=== PATIENT | female | born 1980 | race Caucasian/White ===

== ENCOUNTER → 2017-12-27 | Outpatient (CLI) | payer SELFPAY | LOC: COL.LAB 16:27 → COL.RAD 16:29 | DX: K59.00 Constipation, unspecified (principal); M25.552 Pain in left hip ==

== ENCOUNTER → 2018-02-17 | Outpatient (CLI) | payer SELFPAY | LOC: COL.RAD 10:25 | DX: N83.292 Other ovarian cyst, left side (principal); N88.8 Other specified noninflammatory disorders of cervix uteri; Z90.721 Acquired absence of ovaries, unilateral ==

== ENCOUNTER 2018-03-01 13:37 | Emergency (ER) | payer SELFPAY ==
[~2018-03-01] VITALS: Ht 162.6 cm; Wt 75.0 kg
[2018-03-01 13:53] VITALS: BP 151/79; TEMP 98.5
[2018-03-01 14:08] LABS: COLLECTION METHOD CLEAN CATCH
[2018-03-01 14:18] LABS: MUCOUS Present /lpf; PH 6 (5-8); URINE APPEARANCE Hazy; URINE BACTERIA None Seen /hpf; URINE BILIRUBIN Negative (NEGATIVE); URINE BLOOD Negative (NEGATIVE); URINE COLOR Yellow; URINE GLUCOSE Negative (NEGATIVE); URINE KETONE Negative (NEGATIVE); URINE LEUKOCYTE ESTERASE Negative (NEGATIVE); URINE NITRATE Negative (NEGATIVE); URINE PROTEIN(semi-quant) Negative (NEGATIVE); URINE UROBILINOGEN Negative (NEGATIVE)
[2018-03-01 14:31] LABS: BASO % 0.5 % (0.0-2.0); EOS # 0.1 (0.0-0.7); EOS % 1.1 % (0-4.0); GRAN # 3.8 (1.4-6.5); GRAN % 60.4 % (42.2-75.2); HEMATOCRIT 42.2 % (37.0-47.0); LYMPH # 1.7 (1.2-3.4); LYMPH % 27.6 % (20.0-51.0); MEAN CELL VOLUME 86 fl (80.0-100.0); MEAN CORPUSCULAR HEMOGLOBIN 28 pg (27.0-31.0); MEAN CORPUSCULAR HGB CONC 33 g/dl (33.0-37.0); MONO # 0.6 (0.1-0.6); MONO % 10.2 % (1.7-9.3); PLATELET COUNT 174 K/mm3 (130-400); RED BLOOD COUNT 4.93 M/mm3 (4.10-5.30); REDCELL DISTRIBUTION WIDTH-CV 12.5 % (11.5-14.5)
[2018-03-01 14:45] LABS: ALANINE AMINOTRANSFERASE 26 U/L (9-52); ALBUMIN 3.7 gm/dL (3.5-5.0); ALKALINE PHOSPHATASE 52 U/L (50-136); ANION GAP 10 mmol/L (7-16); AST,SGOT 16 U/L (15-37); BILIRUBIN,TOTAL 0.3 mg/dL (0.0-1.0); BLOOD UREA NITROGEN 14 mg/dL (7-17); CALCIUM 8.7 mg/dL (8.4-10.2); CARBON DIOXIDE 25 mmol/L (22-30); CHLORIDE 103 mmol/L (98-107); CREATININE, serum 0.64 mg/dL (0.52-1.25); GLUCOSE 108 mg/dL (74-106); LIPASE 76 U/L (23-300); POTASSIUM 3.3 mmol/L (3.4-5.0); SODIUM 138 mmol/L (137-145)
[2018-03-01 14:46] LABS: C-REACTIVE PROTEIN < 0.5 mg/dL (0.0-0.9)
[2018-03-01] MEDS ORDERED: DEXILANT60 MG PO (15:02)
[2018-03-01] MEDS ORDERED: NORCO 325 MG-51 TAB PO (16:48)
[2018-03-01 18:07] VITALS: PULSE 83
== END 2018-03-01 18:09 | disposition home or self-care (01) ==
LOC: COL.ER 13:37
PROVIDERS: Physician Assistant
DX: N83.202 Unspecified ovarian cyst, left side (principal); F17.210 Nicotine dependence, cigarettes, uncomplicated; Z90.721 Acquired absence of ovaries, unilateral; Z98.890 Other specified postprocedural states
CPT/HCPCS: J3010

== ENCOUNTER 2024-03-08 19:11 | Emergency (ER) | payer OTHER ==
[~2024-03-08] VITALS: Ht 162.6 cm; Wt 70.5 kg
[~2024-03-08 19:11] MED LIST: DEXILANT60 MG PO; NORCO 325 MG-51 TAB PO
[2024-03-08 19:17] VITALS: TEMP 98.5
[2024-03-08] MEDS ORDERED: LORazepam 0.5 MG TAB PO ONE (19:45)
[2024-03-08 21:00] VITALS: BP 159/88; PULSE 76
== END 2024-03-08 21:00 | disposition home or self-care (01) ==
LOC: COL.ER 19:11
DX: S06.0XAA Concussion with loss of consciousness status unknown, initial encounter (principal); F43.9 Reaction to severe stress, unspecified; M54.50 Low back pain, unspecified; Y09 Assault by unspecified means